=== PATIENT | female | born 1945 | race Caucasian/White ===

== ENCOUNTER → 2016-12-17 | Outpatient (CLI) | payer MEDICARE, OTHER ==
--- NOTE | ~2016-12-17 | MY6 ---
[facility] A Service of [facility] RADIOLOGY TEXT RESULTS PATIENT: ASHLEY CAO LOCATION: [facility] : 49 UNIT #: [id number] AGE: [address]: SOPHIA WU MD SEX: F ORDER DR: [id number] [place] [id number] [facility] [place]. [place], [place] [address] [id number] O MR#: [id number] Acc #: [id number] NAME: ASHLEY CAO : 1945 SEX: F STUDY DATE/TIME: 12/17/2016 14:43 UNIT: [facility] ROOM: STUDY DESCRIPTION: MY Mammogram Dx [place] Attending Physician: Sophia Wu Ordering Physician: Physician Non-Staff Primary Care Physician: Sophia Wu MEDICAL IMAGING REPORT This report is preliminary unless electronic signature is present EXAM Bilateral digital diagnostic mammogram with CAD Date: 12/17/2016 HISTORY A 71-year-old female with complaints of upper outer left breast pain for a couple of years, questionable left breast swelling. Patient states that she fell and broke left ribs recently which could be a source of her pain. Patient denies palpable complaint today. COMPARISON None. The patient's previous mammogram report was performed over 15 years ago, location which is unknown. The current exam serves new baseline study. FINDINGS CC and MLO views were obtained of each breast and a true lateral view was obtained of the left breast. Study was performed utilizing digital technique and reviewed with an FDA-approved CAD device. Scattered fibroglandular densities are present bilaterally. No suspicious nodule is seen within either breast. Benign calcifications are present in the left breast. No suspicious microcalcifications are evident. There is no architectural distortion. No abnormal skin thickening or nipple retraction. As the patient has no palpable complaint, and no target abnormality on today's mammogram, ultrasound was deemed unwarranted. IMPRESSION BIRADS 1. Negative bilateral diagnostic mammogram. Any further [facility] A Service of [facility] RADIOLOGY TEXT RESULTS PATIENT: ASHLEY CAO LOCATION: [facility] : 49 UNIT #: [id number] AGE: [address]: SOPHIA WU MD SEX: F ORDER DR: management of patient's left breast pain should be made upon clinical assessment. Patient is advised to return for routine screening mammogram 1 year. The findings and recommendations were discussed with the patient today in the radiology department. Patients over the age of 40 are entered into a reminder system with target due date for the next mammogram. A result letter will also be sent to the patient. BIRADS: 1 Negative Dictated by... Margie Bashir M.D. THIS IS AN ELECTRONICALLY VERIFIED REPORT Margie Bashir M.D. at 12/22/2016 8:44 AM WAYNE/cora TD: 12/17/2016 21:32 JOB #: [id number] MEDICAL IMAGING REPORT Page 1 of 1 COPY
== END | disposition home or self-care (01) ==
LOC: CWCC 14:26
DX: N64.4 Mastodynia (principal)
CPT/HCPCS: G0204